=== PATIENT | female | born 1955 | race Caucasian/White ===

== ENCOUNTER 2021-01-02 18:19 | Observation (INO) ==
[2021-01-02] MEDS ORDERED: POTASSIUM CHLORIDE 20 MEQ TABLET.SA PO ONE (18:57)
[2021-01-02] MEDS: POTASSIUM CHLORIDE IN WATER 100 ML IV SCH ×4 (19:10→22:26)
[2021-01-02] MEDS ORDERED: NORMAL SALINE 1,000 ML IV ONE (19:12)
--- NOTE | 2021-01-02 19:20 | ERNOTE ---
Medical Problem HPI - Narrative Date of Service: 01/02/21 - General Chief Complaint: General Assessment Time Seen by Provider: 01/02/21 18:39 Source: patient Exam Limitations: no limitations - Immun/Allergies/Home Medications Immunizations: IMMUNIZATION HX Immunizations Up to Date Yes History of Influenza Vaccine Yes Hx Pneumococcal Vaccination Yes Allergies/Adverse Reactions: Allergies No Known Allergies Allergy (Verified 01/02/21 18:26) Home Medications: HOME MEDICATIONS topiramate 25 mg tablet See Rx Instructions .ROUTE .COMPLEX #60 unknown measurement unit code: tablet 08/10/20 [Last Taken Unknown] metoprolol succinate 100 mg tablet,extended release 24 hr See Rx Instructions .ROUTE .COMPLEX #30 unknown measurement unit code: tablet 09/19/20 [Last Taken Unknown] escitalopram oxalate 10 mg tablet 10 mg PO DAILY #30 tab 10/26/20 [Last Taken Unknown] mirtazapine 7.5 mg tablet 7.5 mg PO HS #30 tab 10/26/20 [Last Taken Unknown] naltrexone 50 mg tablet 50 mg PO HS #30 tab 10/26/20 [Last Taken Unknown] - History of Present History Narrative: patient presents to the ED for hypokalemia. Potassium 2.1 just [employer]. She had gone to Dr Beatty's office today. She has had rash on her abdomen for 3 weeks, worsening. Had labs and was told to go to the ED for severely low potassium She has been very depressed with multiple deaths in the family recently. Has been having non-bloody diarrhea but no fever. No vomiting. She has appointment with Dr Sen from [facility] for the rash set up. She does drink hard liquor but does not get withdrawal Sx of she doesn't drink. Timing: constant Severity: moderate Modifying Factors - (Improves): Present: other - nothing Modifying Factors - (Worsens): Present: other - nothing Review of Systems - Review of Systems Constitutional: Absent: fever EYE: Present: no symptoms reported ENT: Absent: sore throat Respiratory: Absent: shortness of breath Cardiology: Absent: chest pain Gastrointestinal/Abdominal: Present: diarrhea. Absent: vomiting, abdominal pain Genitourinary: Absent: dysuria Skin: Present: See HPI All Other Systems: All systems neg except as marked Medical History (Last Reviewed 01/02/21 @ 19:17 by Shen Dukes MD) Alcohol dependence (Chronic) Major depression (Chronic) Sinusitis, acute (Acute) Onset Date: ~02/06/13 Neck pain (Acute) Onset Date: ~12/16/13 cervical spasm Hypertension (Chronic) Onset Date: Unknown Pain of left thumb (Acute) Onset Date: ~12/16/13 Genital warts (Acute) Onset Date: Unknown Diarrhea (Acute) Onset Date: ~05/26/13 Depression (Acute) Onset Date: Unknown Abdominal pain (Acute) Onset Date: ~06/02/13 resolved per patient-mild pancreatitis on CT Surgical History: Surgical History (Last Reviewed 01/02/21 @ 19:17 by Shen Dukes MD) left thumb arthroplasty Family History: Family History (Last Reviewed 01/02/21 @ 19:17 by Shen Dukes MD) Other No pertinent family history Social History: (Last Reviewed 01/02/21 @ 19:17 by Shen Dukes MD) Social History: Marital status: / household members: other current occupational status: retired Service: No Tobacco: Smoking Status: Current every day smoker tobacco type: cigarettes Smoking cigarettes per day: 10.0 Smoking packs per day: 0.5 Alcohol: alcohol intake: current alcohol intake frequency: 0-2 drinks per day Substance Use: substance use type: does not use Dietary Habits: caffeine: No Physical Exam - Physical Exam General Appearance: Present: alert, no apparent distress Head Exam: Present: normal inspection, no evidence of injury Eye Exam: Normal inspection: bilateral, PERRL: bilateral Ears, Nose, Throat: Present: normal ENT inspection Neck: Present: normal inspection Respiratory: Present: no respiratory distress, normal breath sounds, no accessory muscle use, lungs clear Cardiovascular/Chest: Present: regular rate, rhythm, normal peripheral pulses Gastrointestinal/Abdominal: Present: normal bowel sounds, nontender, soft Back Exam: Absent: CVA tenderness (R), CVA tenderness (L) Extremity Exam: Present: normal range of motion Neurological Exam: Present: alert, no motor/sensory deficits Skin Exam: Present: other - There is rash, mostly on abdomen, unclear etiology. No purpura. Progress - Results and Orders Patient's Lab Results:: I have reviewed the patient's lab results. - Vital Signs Patient's Vital Signs:: I have reviewed the patient's vital signs. Vital Signs: Vital Signs 01/02/21 18:23 Temperature 35.4 C L Pulse Rate 54 L Respiratory Rate 16 Blood Pressure 135/68 O2 Sat by Pulse Oximetry 98 - EKG EKG #1 EKG read: Interp. by me EKG Comments: Sinus bradycardia rate 54. Non-specific ST/T wave changes, no STEMI noted - Progress/Reassessment Chief Complaint: General Assessment Progress Note-Subjective: 01/02/21 19:18 D/W Dr Morgan, IV and oral potassium given. Will be admitted given her severe hypokalemia. Patient is agreeable. Departure Clinical Impression: Diarrhea, Hypokalemia, Rash, Hypomagnesemia - Departure Disposition: Still a patient Condition: Fair
[2021-01-02] MEDS ORDERED: MAGNESIUM SULFATE IN WATER 50 ML IV ONE (19:30)
[2021-01-03 06:26] LABS: BUN/Creatinine Ratio 9.1 (9.0-21.6); Calcium * 6.5 mg/dL (7.9-10.9); Carbon Dioxide 27.9 mmol/L (24-32.6); Estimated Creat Clear 125.2; Potassium 2.9 mmol/L (3.4-4.6)
[2021-01-03] MEDS ORDERED: POTASSIUM BICARBONATE/CIT AC 25 MEQ TABLET.EFF PO ONE (08:10)
--- NOTE | 2021-01-03 08:48 | HPDIS ---
Chief Complaint - Chief Complaint Date of Service: 01/03/21 Time of Service: 08:13 Chief Complaint: Low potassium History of Present Illness: 65-year-old female with a past medical history of alcohol abuse, depression, hypertension, diarrhea presents from home with complaints of low potassium. She had been seen by primary care physician for a rash and blood work was done that was positive for potassium of 2.1. Her PCP asked her to present to the emergency room. She states she has been having diarrhea for the past 3 weeks. She typically has 3 episodes in the morning. She also reports a poor appetite for the past 1 year. In the ER she also had hypomagnesemia at 1.1. She received magnesium sulfate 2 g IV. She was admitted for repletion of potassium. Medical History (Last Reviewed 01/02/21 @ 21:00 by Nadine Gill RN) Alcohol dependence (Chronic) Major depression (Chronic) Sinusitis, acute (Acute) Onset Date: ~02/06/13 Neck pain (Acute) Onset Date: ~12/16/13 cervical spasm Hypertension (Chronic) Onset Date: Unknown Pain of left thumb (Acute) Onset Date: ~12/16/13 Genital warts (Acute) Onset Date: Unknown Diarrhea (Acute) Onset Date: ~05/26/13 Depression (Acute) Onset Date: Unknown Abdominal pain (Acute) Onset Date: ~06/02/13 resolved per patient-mild pancreatitis on CT Surgical History: Surgical History (Last Updated 01/02/21 @ 20:58 by Nadine Gill RN) H/O tubal ligation left thumb arthroplasty Family History: Family History (Last Reviewed 01/02/21 @ 21:01 by Nadine Gill RN) Other No pertinent family history Social History: (Last Reviewed 01/02/21 @ 21:01 by Nadine Gill RN) Social History: Marital status: / household members: other current occupational status: retired Service: No Tobacco: Smoking Status: Current every day smoker tobacco type: cigarettes Smoking cigarettes per day: 10.0 Smoking packs per day: 0.5 Alcohol: alcohol intake: current alcohol intake frequency: 0-2 drinks per day Substance Use: substance use type: does not use Dietary Habits: caffeine: No Review Of Systems (GEN) - Review of Systems Generalized/Overall Review: Absent: Fever Respiratory: Absent: Shortness of Breath Cardiac: Absent: Chest Pain Abdominal: Absent: Abdominal Pain Skin: Present: Rash - On abdomen Misc: All systems neg except as marked Immunizations: IMMUNIZATION HX Immunizations Up to Date Yes History of Influenza Vaccine Yes Hx Pneumococcal Vaccination Yes Allergies/Adverse Reactions: Allergies Allergy/AdvReac Type Severity Reaction Status Date / Time No Known Allergies Allergy Verified 01/02/21 18:26 Home Medications: HOME MEDICATIONS topiramate 25 mg tablet See Rx Instructions .ROUTE .COMPLEX #60 unknown measurement unit code: tablet 08/10/20 [Last Taken Unknown] escitalopram oxalate 10 mg tablet 10 mg PO DAILY #30 tab 10/26/20 [Last Taken Unknown] mirtazapine 7.5 mg tablet 7.5 mg PO HS #30 tab 10/26/20 [Last Taken Unknown] naltrexone 50 mg tablet 50 mg PO HS #30 tab 10/26/20 [Last Taken Unknown] Metoprolol Succinate 100 mg PO BID 01/02/21 [Last Taken Unknown] Exam - Exam Vital Signs: Vital Signs - Last Taken Temp 36.0 C 01/03/21 06:00 Pulse 65 01/03/21 06:00 Resp 20 01/03/21 06:00 BP 133/81 01/03/21 06:00 Pulse Ox 93 01/03/21 06:00 Constitutional: Present: Alert, Cooperative, Well developed, Well nourished, No distress, Elderly ENT Exam: Present: hearing grossly normal, moist mucous membranes Eye Exam: bilateral eye: normal inspection, EOMI Neck: Present: non-tender, supple. Absent: lymphadenopathy (R), lymphadenopathy (L) Back Exam: Present: normal inspection, no CVA tenderness, no vertebral tenderness Respiratory: Present: lungs clear, no respiratory distress, no accessory muscle use, No wheezing. Absent: crackles, rhonchi Cardiovascular/Chest: Present: normal peripheral pulses, regular rate, rhythm, no edema, no murmur Peripheral Pulses: dorsalis-pedis (R): 2+, dorsalis-pedis (L): 2+ Abdomen: Present: Normal bowel sounds, soft, nontender Extremity: Present: no pedal edema Skin Exam: Present: skin rash - Abdomen: Macular papular circular lesions with central crusting, surrounded by nonblanching erythema. Nontender, not pruritic. Neurologic: Present: alert, normal mood/affect Appearance: Present: appropriate appearance, appropriate insight Eye contact: Present: cooperative Thoughts: Present: normal thought pattern, normal mood /affect Diagnostic Studies: Abnormal Lab Results 01/02/21 01/03/21 Range/Units 19:07 06:11 Sodium 146 H (132-142) mmol/L Plasma Sodium 146 H (130-142) mmol/L Potassium 2.9 L D (3.4-4.6) mmol/L Chloride 109 H (97-106) mmol/L Est GFR (Non-Af Amer) 152 H D (60-130) mL/min Calcium 6.5 L (7.9-10.9) mg/dL Magnesium 1.1 L (1.2-2.8) mg/dL Laboratory Results Sodium 146 mmol/L (132-142) H 01/03/21 06:11 Plasma Sodium 146 mmol/L (130-142) H 01/03/21 06:11 Potassium 2.9 mmol/L (3.4-4.6) L D 01/03/21 06:11 Chloride 109 mmol/L (97-106) H 01/03/21 06:11 Carbon Dioxide 27.9 mmol/L (24-32.6) 01/03/21 06:11 Anion Gap 12.0 mmol/L (6.8-13.8) 01/03/21 06:11 BUN 4 mg/dL (3-23) 01/03/21 06:11 Creatinine 0.44 mg/dL (0.4-1.4) 01/03/21 06:11 Est GFR (Non-Af Amer) 152 mL/min (60-130) H D 01/03/21 06:11 BUN/Creatinine Ratio 9.1 (9.0-21.6) 01/03/21 06:11 Random Glucose 78 mg/dL (70-110) 01/03/21 06:11 Calcium 6.5 mg/dL (7.9-10.9) L 01/03/21 06:11 Magnesium 1.1 mg/dL (1.2-2.8) L 01/02/21 19:07 SARS-CoV-2 (PCR) Not detected (NotDetected) 01/02/21 19:24 Assessment/Plan - Narrative Narrative: 65-year-old female with a past medical history of alcohol abuse, depression, hypertension, diarrhea presents from home with complaints of low potassium. She had been seen by primary care physician for a rash and blood work was done that was positive for potassium of 2.1. Her PCP asked her to present to the emergency room. She states she has been having diarrhea for the past 3 weeks. She typically has 3 episodes in the morning. She also reports a poor appetite for the past 1 year. In the ER she also had hypomagnesemia at 1.1. She received magnesium sulfate 2 g IV. She was admitted for repletion of potassium. She received potassium chloride 40 mEq IV and 40 mEq orally. Her potassium level this morning is 2.9. I will give her 50 mEq of potassium bicarb now. She will be discharged today and follow-up with her PCP within 1 week. Plan #1 start potassium bicarb 50 mEq now #2 resume home medications for comorbidities #3 discharge planning - Assessment/Plan (1) Hypokalemia Problem: Acute (2) Rash Problem: Acute (3) Hypomagnesemia Problem: Acute (4) Alcohol dependence Problem: Chronic Qualifiers: Substance use status: uncomplicated Qualified Code(s): F10.20 - Alcohol dependence, uncomplicated (5) Major depression Problem: Chronic Qualifiers: Major depression recurrence: single episode Active/Remission status: currently active Major depression episode severity: severe Psychotic features: without psychotic features Qualified Code(s): F32.2 - Major depressive disorder, single episode, severe without psychotic features (6) Hypertension Problem: Chronic (7) Diarrhea Problem: Acute (1) Hypokalemia Problem: Acute (2) Rash Problem: Acute (3) Hypomagnesemia Problem: Acute (4) Alcohol dependence Problem: Chronic Qualifiers: Substance use status: uncomplicated Qualified Code(s): F10.20 - Alcohol dependence, uncomplicated (5) Major depression Problem: Chronic Qualifiers: Major depression recurrence: single episode Active/Remission status: currently active Major depression episode severity: severe Psychotic features: without psychotic features Qualified Code(s): F32.2 - Major depressive disorder, single episode, severe without psychotic features (6) Hypertension Problem: Chronic (7) Diarrhea Problem: Acute Hospital Course: 65-year-old female with a past medical history of alcohol abuse, depression, hypertension, diarrhea presents from home with complaints of low potassium. She had been seen by primary care physician for a rash and blood work was done that was positive for potassium of 2.1. Her PCP asked her to present to the emergency room. She states she has been having diarrhea for the past 3 weeks. She typically has 3 episodes in the morning. She also reports a poor appetite for the past 1 year. In the ER she also had hypomagnesemia at 1.1. She received magnesium sulfate 2 g IV. She was admitted for repletion of potassium. She received potassium chloride 40 mEq IV and 40 mEq orally. Her potassium level this morning is 2.9. I will give her 50 mEq of potassium bicarb now. She will be discharged today and follow-up with her PCP within 1 week. Procedures Performed: none Results and Findings: Lab Pending Results 01/02/21 19:07: Magnesium 1.1 L 01/02/21 19:24: SARS-CoV-2 (PCR) Not detected 01/03/21 06:11: Sodium 146 H, Plasma Sodium 146 H, Potassium 2.9 L D, Chloride 109 H, Carbon Dioxide 27.9, Anion Gap 12.0, BUN 4, Creatinine 0.44, Est GFR (Non-Af Amer) 152 H D, BUN/Creatinine Ratio 9.1, Random Glucose 78, Calcium 6.5 L Discharge Location: Home Disposition: Home self-care Condition: Fair Discharge Activity: Activity as tolerated Discharge Diet: General/regular food Referrals: Cathleen Beatty MD [Primary Care Provider] - Complete Home Medications List: Complete Home Medication List: topiramate 25 mg tablet See Rx Instructions .ROUTE .COMPLEX #60 unknown measurement unit code: tablet 08/10/20 escitalopram oxalate 10 mg tablet 10 mg PO DAILY #30 tab 10/26/20 mirtazapine 7.5 mg tablet 7.5 mg PO HS #30 tab 10/26/20 naltrexone 50 mg tablet 50 mg PO HS #30 tab 10/26/20 Metoprolol Succinate 100 mg PO BID 01/02/21
[2021-01-03] MEDS ORDERED: METOPROLOL SUCCINATE 100 MG TABLET.SA PO SCH (09:00)
[2021-01-03] MEDS ORDERED: ESCITALOPRAM OXALATE 10 MG TAB PO SCH (09:00)
[2021-01-03 10:20] VITALS: BP 150/90
== END 2021-01-03 10:28 | disposition home or self-care (01) ==
LOC: MS 18:19 → ER 18:19 → MS 20:48
PROVIDERS: ADMIT Internal Medicine; ATTEND Internal Medicine